=== PATIENT | female | born 2005 | race Hispanic/Latino ===

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

== ENCOUNTER 2025-01-14 21:07 | Emergency (ER) | payer OTHER ==
[~2025-01-14] VITALS: Ht 167.6 cm; Wt 125.6 kg
[2025-01-14] MEDS ORDERED: HYDROCODONE/ACETA 5/325 TAB PO ONE (21:45)
[2025-01-14] MEDS ORDERED: ONDANSETRON 4 MG TAB ODT SL ONE (21:45)
[2025-01-14] MEDS ORDERED: ONDANSETRON ODT8 MG PO (22:55)
[2025-01-14 23:15] VITALS: BP 152/83
== END 2025-01-14 23:17 | disposition home or self-care (01) ==
LOC: ED 21:07
DX: S09.90XA Unspecified injury of head, initial encounter (principal); W22.8XXA Striking against or struck by other objects, initial encounter
CPT/HCPCS: 70450; 99283-25; A9270